=== PATIENT | female | born 1970 | race Caucasian/White ===

== ENCOUNTER 2017-07-13 08:53 | Emergency (ER) | payer BC ==
[2017-07-13 09:21] VITALS: BP 111/68
--- NOTE | 2017-07-13 10:09 | UC ---
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 no cp or SOB righ tlow back pain currently on period no UTI symptoms - History of Current Complaint Chief Complaint: UCGeneralIllness Stated Complaint: sore THROAT, AND BACK PAIN Time Seen by Provider: 07/13/17 09:14 Hx Obtained From: Patient Hx Last Menstrual Period: 07/05/17 Onset/Duration: Sudden Onset, Lasting Days Severity Initially: Moderate Severity Currently: Moderate Pain Intensity: 7 Pain Scale Used: 0-10 Numeric Character: Cough: Nonproductive Aggravating Factors: Nothing Associated Signs And Symptoms: Positive: Fever, Chills, Nasal Congestion, Sinus Discomfort - Allergies/Home Medications Allergies/Adverse Reactions: Allergies Allergy/AdvReac Type Severity Reaction Status Date / Time No Known Allergies Allergy Verified 07/13/17 09:16 PMH/Surg Hx/FS Hx/Imm Hx Previously Healthy: Yes - Surgical History Surgical History: None - Family History Known Family History: Positive: Hypertension, Blood Disorder - blood clots - Social History Alcohol Use: Occasionally Substance Use Type: None Smoking Status (MU): Never Smoked Tobacco Type: Cigarettes Review of Systems Constitutional: Fever, Chills, Fatigue ENT: Sore Throat, Nasal Discharge, Sinus Congestion Respiratory: Cough Musculoskeletal: Myalgia Is Patient Immunocompromised?: No All Other Systems Reviewed And Are Negative: Yes Physical Exam Triage Information Reviewed: Yes Appearance: Well-Appearing, No Pain Distress, Well-Nourished Vital Signs: Initial Vital Signs Temp 99.5 F 07/13/17 09:17 Pulse 88 07/13/17 09:17 Resp 18 07/13/17 09:17 BP 111/68 07/13/17 09:17 Pulse Ox 99 07/13/17 09:17 Vital Signs Reviewed: Yes Eyes: Positive: Conjunctiva Clear ENT: Positive: Hearing grossly normal, Pharyngeal erythema, Nasal congestion, Nasal drainage, Uvula midline. Negative: Tonsillar swelling, Tonsillar exudate , Trismus, Muffled voice, Hoarse voice, Dental tenderness, Sinus tenderness Dental Exam: Normal Neck exam: Normal Neck: Positive: 1 Respiratory: Positive: Lungs clear, Normal breath sounds, No respiratory distress Cardiovascular Exam: Normal Musculoskeletal: Positive: ROM Intact, No Edema Neurological Exam: Normal Neurological: Positive: Alert, Muscle Tone Normal Psychological Exam: Normal Skin Exam: Normal UC Diagnostic Evaluation - Laboratory Pertinent Lab Values Are: WNL Except: - flu A (+) O2 Sat by Pulse Oximetry: 99 - normal/not hypoxic Respiratory Course/Dx - Differential Dx/Diagnosis Provider Diagnoses: influenza Discharge - Discharge Plan Condition: Stable Disposition: HOME Prescriptions: Oseltamivir CAP* [Tamiflu CAP*] 75 mg PO BID #10 cap Patient Education Materials: Influenza (ED) Forms: *Work Release Referrals: Yarely Dickson MD [Primary Care Provider] - 5 Days (if not better) Additional Instructions: rest fluids tylenol or advil
== END 2017-07-13 10:28 | disposition home or self-care (01) ==
LOC: UCEAST 08:53
DX: J11.1 Influenza due to unidentified influenza virus with other respiratory manifestations (principal)
CPT/HCPCS: 81003; 87502; 87651; 99212; G0463

== ENCOUNTER 2018-09-27 10:03 | Emergency (ER) | payer BC ==
--- NOTE | 2018-09-27 10:34 | UC ---
Hand/Wrist HPI - HPI Summary HPI Summary: 48 yo female presents with left middle finger injury. She tells me that about 2 weeks ago she tripped over her dog and landed awkwardly on her left hand and her left middle finger was twisted underneath her. She violetta taped her finger to her ring finger and applied ice, but is still having some pain and swelling to the area. She is right handed. - History Of Current Complaint Stated Complaint: FINGER INJURY Time Seen by Provider: 09/27/18 10:34 Hx Obtained From: Patient Hx Last Menstrual Period: 07/05/17 Onset/Duration: Sudden Onset Severity Initially: Mild Severity Currently: Mild Pain Intensity: 3 Pain Scale Used: 0-10 Numeric - Allergies/Home Medications Allergies/Adverse Reactions: Allergies Allergy/AdvReac Type Severity Reaction Status Date / Time No Known Allergies Allergy Verified 09/27/18 10:57 Home Medications: Home Medications NK [No Home Medications Reported] 09/27/18 [History Confirmed 09/27/18] PMH/Surg Hx/FS Hx/Imm Hx - Additional Past Medical History Additional PMH: None - Surgical History Surgical History: None - Family History Known Family History: Positive: Hypertension, Blood Disorder - blood clots - Social History Lives: With Family Alcohol Use: Occasionally Substance Use Type: None Smoking Status (MU): Never Smoked Tobacco Type: Cigarettes Review of Systems All Other Systems Reviewed And Are Negative: Yes Constitutional: Positive: Negative Skin: Positive: Negative Respiratory: Positive: Negative Cardiovascular: Positive: Negative Neurovascular: Positive: Negative Musculoskeletal: Positive: Other: - Left middle finger injury Neurological: Positive: Negative Psychological: Positive: Negative Physical Exam - Summary Physical Exam Summary: GENERAL: NAD. WDWN. No pain distress. SKIN: No rashes, sores, lesions, or open wounds. CHEST: No accessory muscle use. Breathing comfortably and in no distress. CV: Pulses intact radial and ulnar. Cap refill <2seconds MSK: LEFT MIDDLE FINGER: TTP at PIP with moderate edema. Not able to fully flex due to pain and edema. NEURO: Alert. Sensations intact hand and all fingers. PSYCH: Age appropriate behavior. Triage Information Reviewed: Yes Vital Signs Reviewed: Yes Hand/Wrist Course/Dx - Course Course Of Treatment: XR: IMPRESSION: Soft tissue swelling without evidence of fracture. Suspect ligament injury to finger. Pt placed in finger splint and advised to f/ u with [facility] - Differential Dx/Diagnosis Provider Diagnosis: Finger sprain Discharge - Sign-Out/Discharge Documenting (check all that apply): Patient Departure All imaging exams completed and their final reports reviewed: Yes - Discharge Plan Condition: Stable Disposition: HOME Patient Education Materials: Finger Sprain (ED) Referrals: Yarely Dickson MD [Primary Care Provider] - Tessa Hubbard MD [Medical Doctor] - As Soon As Possible Additional Instructions: If you develop a fever, shortness of breath, chest pain, new or worsening symptoms - please call your PCP or go to the ED. Your X-Ray today was normal, but given your continued swelling and pain - I am suspicious that you may have a tendon or ligament injury and recommend that you follow up with [facility] at the number below for further evaluation 1) Use the finger splint as much as possible - Billing Disposition and Condition Condition: STABLE Disposition: Home
[2018-09-27 10:55] VITALS: BP 108/61
== END 2018-09-27 11:30 | disposition home or self-care (01) ==
LOC: UCEAST 10:03
DX: S63.633A Sprain of interphalangeal joint of left middle finger, initial encounter (principal); W01.0XXA Fall on same level from slipping, tripping and stumbling without subsequent striking against object, initial encounter; Y92.9 Unspecified place or not applicable
CPT/HCPCS: 73140; 99211; G0463